=== PATIENT | male | born 1955 | race Caucasian/White ===

== ENCOUNTER 2017-05-14 10:54 | Inpatient (IN) | payer OTHER ==
[2017-05-14 12:44] VITALS: BMI 19.2
--- NOTE | 2017-05-14 12:52 | HP ---
CIWA Score - CIWA Score Nausea/Vomitin Muscle Tremors: 2 Anxiety: 2 Agitation: 2 Paroxysmal Sweats: 2 Orientation: 1-Uncertain about Date Tacttile Disturbances: 1-Very Mild Itch/Numbness Auditory Disturbances: 0-None Visual Disturbances: 0-None Headache: 2-Mild CIWA-Ar Total Score: 14 Admission ROS BHS - HPI Chief Complaint: I'm here because I'm an alcoholic and I want to stop Allergies/Adverse Reactions: Allergies Allergy/AdvReac Type Severity Reaction Status Date / Time No Known Allergies Allergy Verified 06/21/16 18:27 History of Present Illness: 62 y/o male with longstanding h/o alcoholism presents for detox with the intention of rehabilitation following treatment. His last detox was early this year, he was last treated at [facility] in July of last year. Patient is HIV + as per records, he however denied having such diagnosis. No HIV meds ordered this visit. He is an MMTP, on 80mg, medicated this morning. Exam Limitations: No Limitations - Ebola screening Have you traveled outside of the country in the last 21 days: No Have you had contact with anyone from an Ebola affected area: No Have you been sick,other than usual withdrawal symptoms: No Do you have a fever: No - Review of Systems Constitutional: Changes in sleep, Unintentional Wgt. Loss EENT: reports: No Symptoms Reported Respiratory: reports: No Symptoms reported Cardiac: reports: No Symptoms Reported GI: reports: Poor Appetite, Poor Fluid Intake, Abdominal cramping : reports: No Symptoms Reported Musculoskeletal: reports: Muscle Pain, Muscle Weakness Integumentary: reports: Other (well healed abdominal scar, s/p gastric bypass) Neuro: reports: Headache, Numbness Endocrine: reports: Unexplained Weight Loss Hematology: reports: No Symptoms Reported Psychiatric: reports: Depressed Other Systems: Reviewed and Negative Patient History - Patient Medical History Hx Anemia: No Hx Asthma: Yes Hx Chronic Obstructive Pulmonary Disease (COPD): No Hx Cancer: Yes (esophageal cancer, diagnosed 4 months ago, s/p chemo and radiation) Hx Cardiac Disorders: No Hx Congestive Heart Failure: No Hx Hypertension: No Hx Hypercholesterolemia: No Hx Pacemaker: No HX Cerebrovascular Accident: No Hx Seizures: Yes (alcohol related once in 02/2015) Hx Dementia: No Hx Diabetes: No Hx Gastrointestinal Disorders: No Hx Liver Disease: No Hx Genitourinary Disorders: No Hx Sexually Transmitted Disorders: No Hx Renal Disease (ESRD): No Hx Thyroid Disease: No Hx Human Immunodeficiency Virus (HIV): Yes (2011) Hx Hepatitis C: Yes (diagnosed 1979) Hx Depression: Yes Hx Suicide Attempt: Yes (2014 cut self) Hx Bipolar Disorder: No Hx Schizophrenia: No - Patient Surgical History Past Surgical History: Yes Hx Neurologic Surgery: No Hx Cataract Extraction: No Hx Cardiac Surgery: No Hx Lung Surgery: No Hx Breast Surgery: No Hx Breast Biopsy: No Hx Abdominal Surgery: Yes (gastric bypass 1971) Hx Appendectomy: No Hx Cholecystectomy: No Hx Genitourinary Surgery: No Hx Section: No Hx Orthopedic Surgery: No Anesthesia Reaction: No - PPD History Previous Implant?: Yes Implanted On Prior [facility] Admission?: Yes Date: 01/25/13 Results: 13 mm PPD to be Administered?: No - Smoking Cessation Smoking history: Current every day smoker Have you smoked in the past 12 months: Yes Aproximately how many cigarettes per day: 10 Hx Chewing Tobacco Use: No Initiated information on smoking cessation: Yes 'Breaking Loose' booklet given: 05/14/17 - Substance & Tx. History Hx Alcohol Use: Yes (vodka) Hx Substance Use: No Substance Use Type: Alcohol - Substances Abused Alcohol Route: Oral Frequency: Daily Amount used: 1 pint Age of first use: 16 Date of Last Use: 05/14/17 Family Disease History - Family Disease History Family Disease History: Diabetes: Mother (alzheimer's, ), Heart Disease : Mother, Other: Father (murdered), Mother Admission Physical Exam BHS - Vital Signs Vital Signs: Vital Signs - 24 hr 05/14/17 12:42 Temperature 96.2 F L Pulse Rate 84 Respiratory 19 Rate Blood Pressure 104/73 - Physical General Appearance: Yes: No Apparent Distress HEENTM: Yes: Hearing grossly Normal, Normocephalic, Other (edentulous) Respiratory: Yes: Chest Non-Tender, Lungs Clear, Normal Breath Sounds, No Respiratory Distress, No Accessory Muscle Use Neck: Yes: No masses,lesions,Nodules, Supple Breast: Yes: Breast Exam Deferred Cardiology: Yes: Within Normal Limits Abdominal: Yes: Normal Bowel Sounds, Flat, Soft, Surgical Scar Genitourinary: Yes: Within Normal Limits Back: Yes: Normal Inspection Musculoskeletal: Yes: full range of Motion, Muscle weakness Extremities: Yes: Normal Range of Motion, Non-Tender, Other (varicose veins) Neurological: Yes: certified nursing assistant II-XII NML intact, Alert, Normal Mood/Affect, Normal Response Integumentary: Yes: Normal Color, Warm Lymphatic: Yes: Within Normal Limits - Diagnostic (1) Alcohol dependence with withdrawal, uncomplicated Current Visit: Yes Status: Acute (2) HIV (human immunodeficiency virus infection) Current Visit: Yes Status: Chronic Comment: 2011 (3) Hepatitis C Current Visit: Yes Status: Chronic Qualifiers: Viral hepatitis chronicity: carrier (4) Methadone maintenance therapy patient Current Visit: Yes Status: Chronic Comment: receives 80mg from methadone program, last dose given today 05/14/2017 (5) Nicotine dependence Current Visit: Yes Status: Acute Qualifiers: Nicotine product type: cigarettes Substance use status: uncomplicated Qualified Code(s): F17.210 - Nicotine dependence, cigarettes, uncomplicated Cleared for Admission [facility] - Detox or Rehab [facility] Level of Care: Medically Managed Detox Regimen/Protocol: Librium S Breath Alcohol Content Breath Alcohol Content: 0.069 Urine Drug Screen - Results Drug Screen Negative: No Urine Drug Screen Results: MTD-Methadone
[2017-05-14] MEDS ORDERED: P-EPHED 60MG/TRIPROLIDI 2.5MG TABLET PO PRN (13:06)
[2017-05-14] MEDS ORDERED: guaiFENesin/D-METHORPHAN HB 10 ML UNIT-DOSE CUPS PO PRN (13:06)
[2017-05-14] MEDS ORDERED: IBUPROFEN 400 MG TABLET (FP) PO PRN (13:06)
[2017-05-14] MEDS ORDERED: MENTHOL/PHENOL 1 EACH UD MM PRN (13:06)
[2017-05-14] MEDS ORDERED: MAG HYDROX/AL HYDROX/SIMETH 30 ML UNIT-DOSE CUP PO PRN (13:06)
[2017-05-14] MEDS ORDERED: MAGNESIUM HYDROX 2400MG/30ML ORAL SUSPENSION 30 ML CUP PO PRN (13:06)
[2017-05-14] MEDS ORDERED: hydrOXYzine PAMOATE 50 MG CAPSULE (FP) PO PRN (13:06)
[2017-05-14] MEDS ORDERED: ACETAMINOPHEN 325 MG TABLET (FP) PO PRN (13:06)
[2017-05-14] MEDS ORDERED: NICOTINE POLACRILEX 2 MG GUM BUC PRN (13:06)
[2017-05-14] MEDS ORDERED: MAGNESIUM CITRATE 300 ML BOTTLE PO PRN (13:06)
[2017-05-14] MEDS ORDERED: chlordiazePOXIDE HCL 25 MG CAPSULE PO PRN (13:06)
[2017-05-14] MEDS ORDERED: chlordiazePOXIDE HCL 25 MG CAPSULE PO ONE (14:00)
[2017-05-14] MEDS: NICOTINE 14 MG/24 HOURS TOPICAL PATCH TD SCH (16:02)
[2017-05-14] MEDS: chlordiazePOXIDE HCL 25 MG CAPSULE PO SCH ×2 (17:26→22:02)
[2017-05-14 18:22] LABS: URINE APPEARANCE CLEAR; URINE BILIRUBIN NEGATIVE (NEGATIVE); URINE BLOOD NEGATIVE (NEGATIVE); URINE COLOR LTYELLOW; URINE GLUCOSE (UA) NEGATIVE (NEGATIVE); URINE KETONE NEGATIVE (NEGATIVE); URINE LEUK ESTERASE NEGATIVE (NEGATIVE); URINE NITRITE NEGATIVE (NEGATIVE); URINE PROTEIN NEGATIVE (NEGATIVE); URINE UROBILINOGEN NEGATIVE mg/dL (0.2-1.0)
[2017-05-14] MEDS: diphenhydrAMINE HCL 50 MG CAPSULE PO PRN (22:02)
[2017-05-14] MEDS: THIAMINE HCL 100 MG TABLET (FP) PO SCH (22:02)
[2017-05-15] MEDS: chlordiazePOXIDE HCL 25 MG CAPSULE PO SCH ×4 (06:12→23:04)
--- NOTE | 2017-05-15 07:21 | PN ---
S CIWA - CIWA Score Nausea/Vomitin Muscle Tremors: 3 Anxiety: 3 Agitation: 2 Paroxysmal Sweats: 1-Minimal Palms Moist Orientation: 0-Oriented Tacttile Disturbances: 1-Very Mild Itch/Numbness Auditory Disturbances: 1-Very Mild Visual Disturbances: 1-Very Mild Sensitivity Headache: 2-Mild CIWA-Ar Total Score: 17 BHS Progress Note (SOAP) Subjective: alert,irritable,anxious,interrupted sleep,tremor Objective: 05/15/17 07:21 Vital Signs Temperature 97.9 F 05/15/17 06:00 Pulse Rate 86 05/15/17 06:00 Respiratory Rate 16 05/15/17 06:00 Blood Pressure 116/62 05/15/17 06:00 O2 Sat by Pulse Oximetry (%) ekg nsr Laboratory Last Values Urine Color Ltyellow 05/14/17 15:50 Urine Appearance Clear 05/14/17 15:50 Urine pH 6.0 (5.0-8.0) 05/14/17 15:50 Ur Specific [place] <= 1.005 (1.005-1.025) 05/14/17 15:50 Urine Protein Negative (NEGATIVE) 05/14/17 15:50 Urine Glucose (UA) Negative (NEGATIVE) 05/14/17 15:50 Urine Ketones Negative (NEGATIVE) 05/14/17 15:50 Urine Blood Negative (NEGATIVE) 05/14/17 15:50 Urine Nitrite Negative (NEGATIVE) 05/14/17 15:50 Urine Bilirubin Negative (NEGATIVE) 05/14/17 15:50 Urine Urobilinogen Negative mg/dL (0.2-1.0) 05/14/17 15:50 Ur Leukocyte Esterase Negative (NEGATIVE) 05/14/17 15:50 labs pending Assessment: 05/15/17 07:22 withdrawal symptom Plan: continue detox
--- NOTE | 2017-05-15 07:42 | PN ---
ANGELICA Progress Note Note: addendum patient on compliance with hiv medication,last taken 3 months ago, stated he will go to see his own doctor for evaluation and medication after discharge
--- NOTE | 2017-05-15 08:15 | PN ---
Ruth Ann Progress Note Note: addendum patient asted he has been on methadone maintenance 80 mgs/day,last medicated yesterday,stated has no bottle to take home today, will give methadone 20 mgs po today,to verify patient's methadone program in am
[2017-05-15] MEDS ORDERED: METHADONE HCL 10 MG TABLET PO ONE (09:00)
[2017-05-15] MEDS: PRENATAL VITAMINS W/ FOLIC ACID TABLET (FP) PO SCH (10:01)
[2017-05-15] MEDS: NICOTINE 14 MG/24 HOURS TOPICAL PATCH TD SCH (10:02)
[2017-05-15 10:05] LABS: MCH 24.7 pg (25.7-33.7); MCHC 31.6 g/dl (32.0-35.9); MEAN CELL VOLUME 78.2 fl (80-96); MEAN PLT VOLUME 8.3 fl (7.5-11.1); PLATELET COUNT 367 K/MM3 (134-434); RDW 17.8 % (11.9-15.9); WHITE BLOOD COUNT 5.7 K/mm3 (4.0-10.0)
[2017-05-15 10:15] LABS: ALBUMIN 2.7 g/dl (3.4-5.0); ANION GAP 6 (8-16); CALCIUM 8.8 mg/dL (8.5-10.1); CO2 30 mmol/L (21-32); GLUCOSE,RANDOM 76 mg/dL (74-106); SGOT/AST 19 U/L (15-37)
[2017-05-15 10:18] LABS: ALK PHOS 96 U/L (45-117); BILIRUBIN,TOTAL 0.2 mg/dL (0.2-1.0); CREATININE 0.6 mg/dL (0.7-1.3); SGPT/ALT 13 U/L (12-78); TOT PROT 6.5 g/dl (6.4-8.2)
--- NOTE | 2017-05-15 13:28 | EKG ---
Test Reason : Blood Pressure : / mmHG Vent. Rate : 070 BPM Atrial Rate : 070 BPM P-R Int : 148 ms QRS Dur : 092 ms QT Int : 432 ms P-R-T Axes : 074 039 045 degrees QTc Int : 466 ms NORMAL SINUS RHYTHM LOW VOLTAGE QRS BORDERLINE ECG NO PREVIOUS ECGS AVAILABLE Confirmed by JOSS WALTERS, NNEKA ([id number]) on 05/15/2017 1:28:18 PM Referred By: Confirmed By:NNEKA COREAS MD
[2017-05-15] MEDS: THIAMINE HCL 100 MG TABLET (FP) PO SCH (23:05)
[2017-05-15] MEDS: diphenhydrAMINE HCL 50 MG CAPSULE PO PRN (23:05)
[2017-05-16] MEDS: chlordiazePOXIDE HCL 25 MG CAPSULE PO SCH ×2 (05:39→10:05)
[2017-05-16] MEDS: METHADONE HCL 40 MG DISPERSABLE TABLET PO SCH (07:29)
--- NOTE | 2017-05-16 09:09 | PN ---
S CIWA - CIWA Score Nausea/Vomitin Muscle Tremors: 3 Anxiety: 3 Agitation: 2 Paroxysmal Sweats: 1-Minimal Palms Moist Orientation: 0-Oriented Tacttile Disturbances: 1-Very Mild Itch/Numbness Auditory Disturbances: 1-Very Mild Visual Disturbances: 1-Very Mild Sensitivity Headache: 2-Mild CIWA-Ar Total Score: 17 BHS Progress Note (SOAP) Subjective: ALERT,IRRITABLE,ANXIOUS,INTERRUPTED SLEEP,ACHING PAIN Objective: 05/16/17 09:06 Vital Signs Temperature 98.6 F 05/16/17 09:05 Pulse Rate 104 H 05/16/17 09:05 Respiratory Rate 18 05/16/17 09:05 Blood Pressure 111/60 05/16/17 09:05 O2 Sat by Pulse Oximetry (%) Laboratory Last Values WBC 5.7 K/mm3 (4.0-10.0) 05/15/17 07:15 RBC 3.83 M/mm3 (4.00-5.60) L 05/15/17 07:15 Hgb 9.5 GM/dL (11.7-16.9) L 05/15/17 07:15 Hct 29.9 % (35.4-49) L 05/15/17 07:15 MCV 78.2 fl (80-96) L 05/15/17 07:15 MCH 24.7 pg (25.7-33.7) L 05/15/17 07:15 MCHC 31.6 g/dl (32.0-35.9) L 05/15/17 07:15 RDW 17.8 % (11.9-15.9) H 05/15/17 07:15 Plt Count 367 K/MM3 (134-434) D 05/15/17 07:15 MPV 8.3 fl (7.5-11.1) 05/15/17 07:15 Sodium 140 mmol/L (136-145) 05/15/17 07:15 Potassium 4.1 mmol/L (3.5-5.1) 05/15/17 07:15 Chloride 104 mmol/L (98-107) 05/15/17 07:15 Carbon Dioxide 30 mmol/L (21-32) 05/15/17 07:15 Anion Gap 6 (8-16) L 05/15/17 07:15 BUN 9 mg/dL (7-18) 05/15/17 07:15 Creatinine 0.6 mg/dL (0.7-1.3) L 05/15/17 07:15 Creat Clearance w eGFR > 60 (>60) 05/15/17 07:15 Random Glucose 76 mg/dL (74-106) 05/15/17 07:15 Calcium 8.8 mg/dL (8.5-10.1) 05/15/17 07:15 Total Bilirubin 0.2 mg/dL (0.2-1.0) D 05/15/17 07:15 AST 19 U/L (15-37) 05/15/17 07:15 ALT 13 U/L (12-78) D 05/15/17 07:15 Alkaline Phosphatase 96 U/L (45-117) 05/15/17 07:15 Total Protein 6.5 g/dl (6.4-8.2) 05/15/17 07:15 Albumin 2.7 g/dl (3.4-5.0) L 05/15/17 07:15 Urine Color Ltyellow 05/14/17 15:50 Urine Appearance Clear 05/14/17 15:50 Urine pH 6.0 (5.0-8.0) 05/14/17 15:50 Ur Specific [place] <= 1.005 (1.005-1.025) 05/14/17 15:50 Urine Protein Negative (NEGATIVE) 05/14/17 15:50 Urine Glucose (UA) Negative (NEGATIVE) 05/14/17 15:50 Urine Ketones Negative (NEGATIVE) 05/14/17 15:50 Urine Blood Negative (NEGATIVE) 05/14/17 15:50 Urine Nitrite Negative (NEGATIVE) 05/14/17 15:50 Urine Bilirubin Negative (NEGATIVE) 05/14/17 15:50 Urine Urobilinogen Negative mg/dL (0.2-1.0) 05/14/17 15:50 Ur Leukocyte Esterase Negative (NEGATIVE) 05/14/17 15:50 RPR Titer Reactive 1:1 (NONREACTIVE) H 05/15/17 07:15 T.pallidum Ab (MHA) Previously reactive (NONREACTIVE) 05/15/17 07:15 HISTORY OF ANEMIA,HISTORY OF SYPHILIS ,TREATED Assessment: 05/16/17 09:07 WITHDRAWAL SYMPTOM Plan: CONTINUE DETOX,FERROUS SULFATE 325 MGS PO BID FOR ANEMIA
[2017-05-16] MEDS: FERROUS SO4 325 MG TABLET (FP) PO SCH ×2 (10:05→22:14)
[2017-05-16] MEDS: NICOTINE 14 MG/24 HOURS TOPICAL PATCH TD SCH (10:05)
[2017-05-16] MEDS: PRENATAL VITAMINS W/ FOLIC ACID TABLET (FP) PO SCH (10:05)
--- NOTE | 2017-05-16 12:03 | CONSULT ---
[facility] Psychiatric Consult - Data Date of interview: 05/16/17 Admission source: [facility] Identifying data: This is 62 years old male with psychiatric hospitalization history, History of Schizoaffective Diosorder, iontoxicated with: Alcohol, Nicotine, Opioids Substance Abuse History: - Smoking Cessation. Smoking history: Current every day smoker. Have you smoked in the past 12 months: Yes. Aproximately how many cigarettes per day: 10. Hx Chewing Tobacco Use: No. Initiated information on smoking cessation: Yes. 'Breaking Loose' booklet given: 05/14/17. - Substance & Tx. History. Hx Alcohol Use: Yes (vodka). Hx Substance Use: No. Substance Use Type: Alcohol. - Substances Abused. Alcohol. Route: Oral. Frequency: Daily. Amount used: 1 pint. Age of first use: 16. Date of Last Use: 05/14/17 Medical History: HepC+, HIV, Weight loss, MMTP 80-mg per day, Asthma history, Anemia history, GERD, GASTRIC BYPASS s/p, PPD + Psychiatric History: Patient reportys history of Bipolar disorder, reprots most rceent psychiatric admission on 2017 at [facility] for safety, reports currently taking: Seroquel 20mg poqd,. 100mg po qhs Physical/Sexual Abuse/Trauma History: Denies Additional Comment: Seroquel 20mg poqd,. 100mg po qhs Mental Status Exam - Mental Status Exam Alert and Oriented to: Person Cognitive Function: Fair Patient Appearance: Unkempt Mood: Sad Affect: Flat Patient Behavior: Cooperative Speech Pattern: Delayed Voice Loudness: Mildly Soft/Quiet Thought Process: Circumstantial Thought Disorder: Being Controlled Hallucinations: Denies Suicidal Ideation: Denies Homicidal Ideation: Denies Insight/Judgement: Fair Sleep: Difficulty falling asleep Appetite: Weight loss Muscle strength/Tone: Normal Gait/Station: Normal Additional Comments: Seroquel 20mg poqd,. 100mg po qhs Psychiatric Findings - Problem List ([place] 1, 2,3) (1) Alcohol dependence with withdrawal, uncomplicated Current Visit: Yes Status: Acute (2) Nicotine dependence Current Visit: Yes Status: Acute Qualifiers: Nicotine product type: cigarettes Substance use status: uncomplicated Qualified Code(s): F17.210 - Nicotine dependence, cigarettes, uncomplicated (3) Methadone maintenance therapy patient Current Visit: Yes Status: Chronic Comment: receives 80mg from methadone program, last dose given today 05/14/2017 (4) Substance induced mood disorder Current Visit: No Status: Acute (5) Substance-induced sleep disorder Current Visit: No Status: Acute (6) Anemia Current Visit: No Status: Chronic Qualifiers: Anemia type: iron deficiency (7) Schizoaffective disorder Current Visit: No Status: Suspected (8) Weight decrease Current Visit: No Status: Suspected - Initial Treatment Plan Initial Treatment Plan: Seroquel 20mg poqd,. 100mg po qhs
[2017-05-16] MEDS: QUEtiapine FUMARATE 25 MG TABLET (FP) PO SCH (12:32)
[2017-05-16] MEDS: chlordiazePOXIDE 5 MG CAPSULE PO SCH ×2 (17:31→22:35)
[2017-05-16] MEDS: LOPERAMIDE HCL 2 MG CAPSULE PO PRN (17:31)
[2017-05-16] MEDS: QUEtiapine FUMARATE 100 MG TABLET (FP) PO SCH (22:14)
[2017-05-16] MEDS: THIAMINE HCL 100 MG TABLET (FP) PO SCH (22:16)
[2017-05-17] MEDS: chlordiazePOXIDE 5 MG CAPSULE PO SCH ×2 (05:34→10:16)
[2017-05-17] MEDS: METHADONE HCL 40 MG DISPERSABLE TABLET PO SCH (05:35)
--- NOTE | 2017-05-17 09:22 | PN ---
S Progress Note (SOAP) Subjective: ALERT,IRRITABLE,ANXIOUS,INTERRUPTED SLEEP, Objective: 05/17/17 09:21 Vital Signs Temperature 97.3 F L 05/17/17 06:21 Pulse Rate 89 05/17/17 06:21 Respiratory Rate 18 05/17/17 06:21 Blood Pressure 106/70 05/17/17 06:21 O2 Sat by Pulse Oximetry (%) Assessment: 05/17/17 09:21 WITHDRAWAL SYMPTOM Plan: CONTINUE DETOX
[2017-05-17] MEDS: FERROUS SO4 325 MG TABLET (FP) PO SCH ×2 (10:16→22:33)
[2017-05-17] MEDS: PRENATAL VITAMINS W/ FOLIC ACID TABLET (FP) PO SCH (10:16)
[2017-05-17] MEDS: QUEtiapine FUMARATE 25 MG TABLET (FP) PO SCH (10:16)
[2017-05-17] MEDS: NICOTINE 14 MG/24 HOURS TOPICAL PATCH TD SCH (10:18)
[2017-05-17] MEDS: chlordiazePOXIDE HCL 10 MG CAPSULE PO SCH ×2 (17:17→22:36)
[2017-05-17] MEDS: LOPERAMIDE HCL 2 MG CAPSULE PO PRN (17:18)
[2017-05-17 21:53] VITALS: TEMP 98.2
[2017-05-17] MEDS: THIAMINE HCL 100 MG TABLET (FP) PO SCH (22:33)
[2017-05-17] MEDS: QUEtiapine FUMARATE 100 MG TABLET (FP) PO SCH (22:33)
[2017-05-18] MEDS: METHADONE HCL 40 MG DISPERSABLE TABLET PO SCH (06:07)
[2017-05-18] MEDS: chlordiazePOXIDE HCL 10 MG CAPSULE PO SCH ×2 (06:07→10:23)
[2017-05-18 06:46] VITALS: BP 111/56; PULSE 97
--- NOTE | 2017-05-18 08:17 | DS ---
[facility] Detox Discharge Summary Admission Date: 05/14/17 - History Present History: Alcohol Dependence - Physical Exam Results Vital Signs: Vital Signs Temperature 98.2 F 05/18/17 06:45 Pulse Rate 97 H 05/18/17 06:45 Respiratory Rate 20 05/18/17 06:45 Blood Pressure 111/56 05/18/17 06:45 O2 Sat by Pulse Oximetry (%) - Treatment Hospital Course: Detox Protocol Followed, Detoxed Safely, Responded well, Discharged Condition Good - Medication Discharge Medications: Ambulatory Orders Albuterol Sulfate Inhaler - [Ventolin HFA Inhaler -] 2 inh PO Q4H PRN #1 inh 08/13 Quetiapine Fumarate [Seroquel -] 100 mg PO HS #30 tab 08/09/15 Omeprazole [Prilosec] 40 mg PO DAILY 06/21/16 Naproxen [EC-Naprosyn 375 MG] 375 mg PO BID 06/22/16 Emtricitabine/Tenofovir [Truvada -] 1 tab PO DAILY tablet 06/25/16 - Diagnosis (1) Alcohol dependence with withdrawal, uncomplicated Current Visit: Yes Status: Chronic (2) Nicotine dependence Current Visit: Yes Status: Chronic Qualifiers: Nicotine product type: cigarettes Substance use status: uncomplicated Qualified Code(s): F17.210 - Nicotine dependence, cigarettes, uncomplicated (3) HIV (human immunodeficiency virus infection) Current Visit: Yes Status: Chronic (4) Hepatitis C Current Visit: Yes Status: Chronic Qualifiers: Viral hepatitis chronicity: carrier (5) Methadone maintenance therapy patient Current Visit: Yes Status: Chronic (6) GERD (gastroesophageal reflux disease) Current Visit: Yes Status: Chronic Qualifiers: Esophagitis presence: without esophagitis Qualified Code(s): K21.9 - Gastro-esophageal reflux disease without esophagitis - AMA Did Patient Leave Against Medical Advice: No
[2017-05-18] MEDS: PRENATAL VITAMINS W/ FOLIC ACID TABLET (FP) PO SCH (10:22)
[2017-05-18] MEDS: FERROUS SO4 325 MG TABLET (FP) PO SCH (10:22)
[2017-05-18] MEDS: QUEtiapine FUMARATE 25 MG TABLET (FP) PO SCH (10:22)
[2017-05-18] MEDS: NICOTINE 14 MG/24 HOURS TOPICAL PATCH TD SCH (10:22)
== END 2017-05-18 10:57 | disposition home or self-care (01) | DRG 897 ==
LOC: YASAS 10:54 → Y6N 13:57
PROVIDERS: ADMIT Internal Medicine; ATTEND Internal Medicine
PROC: HZ2ZZZZ Detoxification Services for Substance Abuse Treatment (ICD-10-PCS; principal; 2017-05-18)
DX: F11.20 Opioid dependence, uncomplicated (principal); F10.230 Alcohol dependence with withdrawal, uncomplicated; F19.282 Other psychoactive substance dependence with psychoactive substance-induced sleep disorder; Z68.1 Body mass index [BMI] 19.9 or less, adult; F17.210 Nicotine dependence, cigarettes, uncomplicated; F19.24 Other psychoactive substance dependence with psychoactive substance-induced mood disorder; F25.9 Schizoaffective disorder, unspecified; B18.2 Chronic viral hepatitis C; Z21 Asymptomatic human immunodeficiency virus [HIV] infection status; K21.9 Gastro-esophageal reflux disease without esophagitis; R63.4 Abnormal weight loss
CPT/HCPCS: 36415; 71020-TC; 80053; 81003; 85027; 86593; 86780; 93005; 93010

== ENCOUNTER 2017-09-13 10:35 | Inpatient (IN) | payer OTHER ==
[2017-09-13 11:04] VITALS: BMI 22.8
--- NOTE | 2017-09-13 17:10 | HP ---
Admission ROS [facility] Chief Complaint: I am here for rehab for treatment. Allergies/Adverse Reactions: Allergies Allergy/AdvReac Type Severity Reaction Status Date / Time No Known Allergies Allergy Verified 09/13/17 16:49 History of Present Illness: pt is a 62yr old male with a history of alcohol and crack cocaine but pt received detox at [facility] and is now here for rehab for further tx. pt is on a mmtp program and received 80mg of methadone today pending verification. Exam Limitations: Physical Impairment (pt uses walker d/t weak knees) - Ebola screening Have you traveled outside of the country in the last 21 days: No Have you had contact with anyone from an Ebola affected area: No Have you been sick,other than usual withdrawal symptoms: No Do you have a fever: No - Review of Systems Constitutional: Loss of Appetite, Changes in sleep, Unintentional Wgt. Loss EENT: reports: No Symptoms Reported Respiratory: reports: No Symptoms reported Cardiac: reports: No Symptoms Reported GI: reports: No Symptoms Reported : reports: No Symptoms Reported Musculoskeletal: reports: No Symptoms Reported Integumentary: reports: No Symptoms Reported Neuro: reports: No Symptoms reported Hematology: reports: No Symptoms Reported Psychiatric: reports: Judgement Intact, Mood/Affect Appropiate, Orientated x3, Agitated, Anxious Other Systems: Reviewed and Negative Patient History - Patient Medical History Hx Anemia: No Hx Asthma: Yes Hx Chronic Obstructive Pulmonary Disease (COPD): No Hx Cancer: Yes (esophageal cancer, diagnosed 4 months ago, s/p chemo and radiation) Hx Cardiac Disorders: No Hx Congestive Heart Failure: No Hx Hypertension: No Hx Hypercholesterolemia: No Hx Pacemaker: No HX Cerebrovascular Accident: No Hx Seizures: No Hx Dementia: No Hx Diabetes: No Hx Gastrointestinal Disorders: No Hx Liver Disease: No Hx Genitourinary Disorders: No Hx Sexually Transmitted Disorders: No Hx Renal Disease (ESRD): No Hx Thyroid Disease: No Hx Human Immunodeficiency Virus (HIV): Yes (2011) Hx Hepatitis C: Yes (diagnosed 1979) Hx Depression: No Hx Suicide Attempt: No (denies) Hx Bipolar Disorder: No Hx Schizophrenia: No - Patient Surgical History Past Surgical History: Yes Hx Neurologic Surgery: No Hx Cataract Extraction: No Hx Cardiac Surgery: No Hx Lung Surgery: No Hx Breast Surgery: No Hx Breast Biopsy: No Hx Abdominal Surgery: Yes (gastric bypass 1971) Hx Appendectomy: No Hx Cholecystectomy: No Hx Genitourinary Surgery: No Hx Section: No Hx Orthopedic Surgery: No Other Surgical History: SPRAINED RT. ANKLE Anesthesia Reaction: No - PPD History Previous Implant?: Yes Documented Results: Positive w/proof Implanted On Prior [facility] Admission?: Yes Date: 01/25/13 Results: 13 mm PPD to be Administered?: No - Reproductive History Patient is a Female of Child Bearing Age (11 -55 yrs old): No - Smoking Cessation Smoking history: Current every day smoker Have you smoked in the past 12 months: Yes Aproximately how many cigarettes per day: 10 Hx Chewing Tobacco Use: No Initiated information on smoking cessation: Yes 'Breaking Loose' booklet given: 09/13/17 - Substance & Tx. History Hx Alcohol Use: Yes Hx Substance Use: Yes Substance Use Type: Alcohol, Cocaine Hx Substance Use Treatment: Yes (last detox at [facility] 2016) - Substances Abused Crack Route: Smoking Frequency: Daily Amount used: $20 Age of first use: 22 Date of Last Use: 09/08/17 Alcohol-vodka Route: Oral Frequency: Daily Amount used: fifth Age of first use: 17 Date of Last Use: 09/08/17 Family Disease History - Family Disease History Family Disease History: Diabetes: Mother (alzheimer's, ), Heart Disease : Mother, Other: Father (murdered), Mother Admission Physical Exam [facility] - Vital Signs Vital Signs: Vital Signs - 24 hr 09/13/17 10:59 Temperature 98.1 F Pulse Rate 70 Respiratory 18 Rate Blood Pressure 119/78 - Physical General Appearance: Yes: Appropriately Dressed, Moderate Distress, Thin, Anxious HEENTM: Yes: Normal Voice, Nasal Congestion, Rhinorrhea Respiratory: Yes: Lungs Clear, Normal Breath Sounds, No Respiratory Distress Neck: Yes: No masses,lesions,Nodules Breast: Yes: Within Normal Limits Cardiology: Yes: Regular Rhythm, Regular Rate, S1, S2 Abdominal: Yes: Normal Bowel Sounds, Non Tender, Soft Genitourinary: Yes: Within Normal Limits Back: Yes: Normal Inspection Extremities: Yes: Normal Capillary Refill, Non-Tender Neurological: Yes: Fully Oriented Integumentary: Yes: Normal Color Lymphatic: Yes: Within Normal Limits - Diagnostic (1) Asthma Current Visit: No Status: Chronic Qualifiers: Asthma severity: mild Asthma complication type: uncomplicated (2) HIV (human immunodeficiency virus infection) Current Visit: No Status: Chronic Comment: 2011 (3) Hepatitis C Current Visit: No Status: Chronic Qualifiers: Viral hepatitis chronicity: chronic (4) Methadone maintenance therapy patient Current Visit: No Status: Chronic Comment: receives 80mg from methadone program, last dose given today 05/14/2017 (5) Nicotine dependence Current Visit: No Status: Chronic Qualifiers: Nicotine product type: cigarettes Substance use status: uncomplicated Qualified Code(s): F17.210 - Nicotine dependence, cigarettes, uncomplicated Cleared for Admission [facility] - Detox or Rehab [facility] Level of Care: Medically Managed Claeared for Rehab Admission: Yes [facility] Breath Alcohol Content Breath Alcohol Content: 0 Urine Drug Screen - Results Drug Screen Negative: No Urine Drug Screen Results: DELORIS-Cocaine, MTD-Methadone
[2017-09-13] MEDS ORDERED: LOPERAMIDE HCL 2 MG CAPSULE PO PRN (17:19)
[2017-09-13] MEDS ORDERED: hydrOXYzine PAMOATE 50 MG CAPSULE (FP) PO PRN (17:19)
[2017-09-13] MEDS ORDERED: NICOTINE POLACRILEX 4 MG GUM BC PRN (17:19)
[2017-09-13] MEDS ORDERED: MAGNESIUM CITRATE 300 ML BOTTLE PO PRN (17:19)
[2017-09-13] MEDS ORDERED: MENTHOL/PHENOL 1 EACH UD MM PRN (17:19)
[2017-09-13] MEDS ORDERED: IBUPROFEN 400 MG TABLET (FP) PO PRN (17:19)
[2017-09-13] MEDS ORDERED: guaiFENesin/D-METHORPHAN HB 10 ML UNIT-DOSE CUPS PO PRN (17:19)
[2017-09-13] MEDS ORDERED: MAG HYDROX/AL HYDROX/SIMETH 30 ML UNIT-DOSE CUP PO PRN (17:19)
[2017-09-13] MEDS ORDERED: P-EPHED 60MG/TRIPROLIDI 2.5MG TABLET PO PRN (17:19)
[2017-09-13] MEDS ORDERED: MAGNESIUM HYDROX 2400MG/30ML ORAL SUSPENSION 30 ML CUP PO PRN (17:19)
[2017-09-13] MEDS: THIAMINE HCL 100 MG TABLET (FP) PO SCH (21:17)
[2017-09-13] MEDS: QUEtiapine FUMARATE 100 MG TABLET (FP) PO SCH ×2 (21:17→22:14)
[2017-09-13 22:43] LABS: URINE APPEARANCE SLCLOUDY; URINE BILIRUBIN NEGATIVE (NEGATIVE); URINE BLOOD NEGATIVE (NEGATIVE); URINE COLOR YELLOW; URINE GLUCOSE (UA) NEGATIVE (NEGATIVE); URINE KETONE NEGATIVE (NEGATIVE); URINE NITRITE NEGATIVE (NEGATIVE); URINE PROTEIN NEGATIVE (NEGATIVE)
--- NOTE | 2017-09-14 06:22 | HP ---
Psychiatrist Admission - Data Date of interview: 09/14/17 Admission source: [facility] Identifying data: This is the second [facility] admission for this 62 years old single male, unemployed on SSI, homeless Medical History: Significant for history of bronchial asthma, alcohol-related seizure, Hep C, chronic LBP, prophylaxis treatment for TB, right shoulder sprained and a history of blood clot both legs and gastric bypass surgery. Patient is on methadone 80 mg/day. Smokes 10 cigarettes daily Psychiatric History: Patient is a poor and unreliable historian. However he acknowledges information he provided in previous admissions to this facility. He has history of Schizophrenia since 1991 and has had multiple previous psychiatric hospitalizations including [facility] in 2013 for CAH/SI. More recently earlier this year, reports being admitted to a hospital in [place], [place] . Reports non-compliance with psychiatric outpatient services. Claims that last time he took psychotropic medications was last April when he was admitted to detox in this facility and prescribed Seroquel 200 mg daily & [address] Welch. At present, reports sleeping poorly without medication. Denies experiencing psychotic, manic or depressive symptoms, S/H ideations Physical/Sexual Abuse/Trauma History: Denies history of verbal, physical or sexual abuse as well as DV relationship Additional Comment: Denies criminal history Vital Signs: Vital Signs - 24 hr 09/13/17 10:59 Temperature 98.1 F Pulse Rate 70 Respiratory 18 Rate Blood Pressure 119/78 Allergies/Adverse Reactions: Allergies Allergy/AdvReac Type Severity Reaction Status Date / Time No Known Allergies Allergy Verified 09/13/17 16:49 Date of last physical exam: 09/13/17 Concur with the findings of this exam: Yes - Substance Abuse/Tx History Hx Alcohol Use: Yes Hx Substance Use: Yes Substance Use Type: Alcohol (Started drinking alcohol at age 17, consumes a fifth of vodka daily. Last drank on 09/08/17), Cocaine (Started smoking crack cocaine at age 22, consumes $20 worth daily.Last smoked on 09/08/17) Hx Substance Use Treatment: Yes (Attends [facility]; 13 previous inpt detox & one rehab @ [facility]) Mental Status Exam - Mental Status Exam Alert and Oriented to: Place, Person Cognitive Function: Fair Patient Appearance: Disheveled Mood: Hopeful, Euthymic Affect: Appropriate Patient Behavior: Cooperative Speech Pattern: Clear Voice Loudness: Normal Thought Process: Intact, Goal Oriented Hallucinations: Denies Suicidal Ideation: Denies Homicidal Ideation: Denies Insight/Judgement: Fair Sleep: Poorly Appetite: Fair Muscle strength/Tone: Normal Gait/Station: Normal Psychiatric Findings - Problem List ([place] 1, 2,3) (1) Alcohol dependence Current Visit: Yes Status: Acute (2) Cocaine dependence Current Visit: Yes Status: Acute (3) Schizoaffective disorder Current Visit: No Status: Suspected (4) Opioid dependence on agonist therapy Current Visit: Yes Status: Acute (5) Nicotine dependence Current Visit: Yes Status: Acute (6) Schizoaffective disorder Current Visit: Yes Status: Acute (7) Substance-induced sleep disorder Current Visit: No Status: Acute (8) Anemia Current Visit: No Status: Chronic Qualifiers: Anemia type: iron deficiency (9) Asthma Current Visit: No Status: Chronic Qualifiers: Asthma severity: mild Asthma complication type: uncomplicated (10) GERD (gastroesophageal reflux disease) Current Visit: No Status: Chronic Qualifiers: Esophagitis presence: without esophagitis Qualified Code(s): K21.9 - Gastro -esophageal reflux disease without esophagitis (11) HIV (human immunodeficiency virus infection) Current Visit: No Status: Chronic Comment: 2011 (12) Hepatitis C Current Visit: No Status: Chronic Qualifiers: Viral hepatitis chronicity: chronic - Initial Treatment Plan Initial Treatment Plan: 1) Start Seroquel 100 mg po HS. 2) Monitor progress
[2017-09-14] MEDS: ACETAMINOPHEN 325 MG TABLET (FP) PO PRN (06:30)
[2017-09-14] MEDS ORDERED: METHADONE HCL 10 MG TABLET PO ONE (07:56)
[2017-09-14] MEDS ORDERED: METHADONE HCL 40 MG DISPERSABLE TABLET PO ONE (08:05)
[2017-09-14] MEDS: NICOTINE 21 MG/24 HOURS TOPICAL PATCH TD SCH (09:59)
[2017-09-14] MEDS: PRENATAL VITAMINS W/ FOLIC ACID TABLET (FP) PO SCH (09:59)
[2017-09-14 10:08] LABS: MCH 22.6 pg (25.7-33.7); MCHC 30.7 g/dl (32.0-35.9); MEAN CELL VOLUME 73.7 fl (80-96); MEAN PLT VOLUME 8.9 fl (7.5-11.1); PLATELET COUNT 376 K/MM3 (134-434); RDW 19.7 % (11.9-15.9); WHITE BLOOD COUNT 11.5 K/mm3 (4.0-10.0)
[2017-09-14 10:33] LABS: ALBUMIN 2.9 g/dl (3.4-5.0); ALK PHOS 100 U/L (45-117); ANION GAP 12 (8-16); BILIRUBIN,TOTAL 0.5 mg/dL (0.2-1.0); CALCIUM 8.3 mg/dL (8.5-10.1); CO2 24 mmol/L (21-32); CREATININE 0.7 mg/dL (0.7-1.3); GLUCOSE,RANDOM 72 mg/dL (74-106); SGOT/AST 14 U/L (15-37); SGPT/ALT 17 U/L (12-78)
[2017-09-14 11:01] LABS: URINE LEUK ESTERASE Negative (NEGATIVE)
[2017-09-14 11:03] LABS: HIV 1 & 2 AB NEGATIVE; HIV 1 AGp24 NEGATIVE
--- NOTE | 2017-09-14 11:38 | EKG ---
Test Reason : Blood Pressure : / mmHG Vent. Rate : 066 BPM Atrial Rate : 066 BPM P-R Int : 138 ms QRS Dur : 092 ms QT Int : 422 ms P-R-T Axes : 051 015 030 degrees QTc Int : 442 ms NORMAL SINUS RHYTHM NORMAL ECG WHEN COMPARED WITH ECG OF 14-MAY-2017 14:53, NO SIGNIFICANT CHANGE WAS FOUND Confirmed by NNEKA COREAS MD ([id number]) on 09/14/2017 11:38:08 AM Referred By: Confirmed By:NNEKA COREAS MD
--- NOTE | 2017-09-14 13:26 | PN ---
S Progress Note (SOAP) Subjective: no SOB, wheezing or sputum production , no complaints Objective: 09/14/17 13:23 Vital Signs - 24 hr 09/14/17 09/14/17 09/14/17 07:11 07:23 09:30 Temperature 101 F H 99.2 F 99.3 F Pulse Rate 90 95 H Respiratory 20 18 Rate Blood Pressure 131/80 103/53 febrile, tachycardia Laboratory Tests 09/13/17 09/13/17 09/14/17 07:00 21:30 07:00 WBC 11.5 H D RBC 3.72 L Hgb 8.4 L D Hct 27.4 L MCV 73.7 L MCH 22.6 L MCHC 30.7 L RDW 19.7 H D Plt Count 376 MPV 8.9 Sodium Potassium Chloride Carbon Dioxide Anion Gap BUN Creatinine Creat Clearance w eGFR Random Glucose Calcium Total Bilirubin AST ALT Alkaline Phosphatase Total Protein Albumin Urine Color Yellow Urine Appearance Slcloudy Urine pH 5.0 Ur Specific [place] 1.014 Urine Protein Negative Urine Glucose (UA) Negative Urine Ketones Negative Urine Blood Negative Urine Nitrite Negative Urine Bilirubin Negative Urine Urobilinogen 2.0 Ur Leukocyte Esterase Negative RPR Titer T.pallidum Ab (MHA) HIV 1&2 Antibody Screen Negative HIV P24 Antigen Negative 09/14/17 09/14/17 07:00 07:00 WBC RBC Hgb Hct MCV MCH MCHC RDW Plt Count MPV Sodium 142 Potassium 4.6 Chloride 106 Carbon Dioxide 24 Anion Gap 12 BUN 11 D Creatinine 0.7 Creat Clearance w eGFR > 60 Random Glucose 72 L Calcium 8.3 L Total Bilirubin 0.5 D AST 14 L D ALT 17 D Alkaline Phosphatase 100 Total Protein 7.0 Albumin 2.9 L Urine Color Urine Appearance Urine pH Ur Specific [place] Urine Protein Urine Glucose (UA) Urine Ketones Urine Blood Urine Nitrite Urine Bilirubin Urine Urobilinogen Ur Leukocyte Esterase RPR Titer Reactive 1:1 H T.pallidum Ab (MHA) Previously reactive HIV 1&2 Antibody Screen HIV P24 Antigen syphilis +e, 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 If condition deteriorates send to ED for evaluation.
[2017-09-14] MEDS: PANTOPRAZOLE 40 MG TABLET (FP) PO SCH (14:18)
[2017-09-14] MEDS: FERROUS SO4 325 MG TABLET (FP) PO SCH ×2 (14:18→16:55)
[2017-09-14] MEDS: AMOX TR/POT CLAV 500MG/125MG TABLETS (FP) PO SCH ×2 (15:16→16:55)
[2017-09-14] MEDS: METHYL SALICYLATE/MENTHOL OINT 30 GM TUBE TP SCH (15:16)
[2017-09-14] MEDS: THIAMINE HCL 100 MG TABLET (FP) PO SCH (21:51)
[2017-09-14] MEDS: QUEtiapine FUMARATE 100 MG TABLET (FP) PO SCH ×2 (21:52→22:13)
[2017-09-14] MEDS: DOCUSATE SODIUM 100 MG CAPSULE (FP) PO SCH (21:53)
[2017-09-15] MEDS ORDERED: METHADONE HCL 10 MG TABLET ONE (05:38)
[2017-09-15] MEDS ORDERED: METHADONE HCL 40 MG DISPERSABLE TABLET ONE (05:38)
[2017-09-15] MEDS ORDERED: METHADONE 40 MG, METHADONE 10 MG PO ONE (06:00)
[2017-09-15] MEDS ORDERED: METHADONE HCL 10 MG TABLET PO ONE (06:00)
[2017-09-15] MEDS: AMOX TR/POT CLAV 500MG/125MG TABLETS (FP) PO SCH ×2 (08:09→16:55)
[2017-09-15] MEDS: FERROUS SO4 325 MG TABLET (FP) PO SCH ×3 (08:09→16:55)
[2017-09-15] MEDS: METHYL SALICYLATE/MENTHOL OINT 30 GM TUBE TP SCH (10:29)
[2017-09-15] MEDS: PANTOPRAZOLE 40 MG TABLET (FP) PO SCH (10:29)
[2017-09-15] MEDS: NICOTINE 21 MG/24 HOURS TOPICAL PATCH TD SCH (10:29)
[2017-09-15] MEDS: PRENATAL VITAMINS W/ FOLIC ACID TABLET (FP) PO SCH (10:29)
[2017-09-15] MEDS: QUEtiapine FUMARATE 100 MG TABLET (FP) PO SCH (21:36)
[2017-09-15] MEDS: DOCUSATE SODIUM 100 MG CAPSULE (FP) PO SCH (21:36)
[2017-09-15] MEDS: THIAMINE HCL 100 MG TABLET (FP) PO SCH (21:36)
[2017-09-15] MEDS: ALBUTEROL SO4 18 GM HFA INHALER IH PRN (21:37)
[2017-09-16] MEDS ORDERED: METHADONE HCL 10 MG TABLET ONE (04:06)
[2017-09-16] MEDS ORDERED: METHADONE HCL 40 MG DISPERSABLE TABLET ONE (04:06)
[2017-09-16] MEDS ORDERED: METHADONE 40 MG, METHADONE 20 MG PO ONE (06:00)
[2017-09-16] MEDS ORDERED: METHADONE HCL 10 MG TABLET PO ONE (06:00)
[2017-09-16] MEDS: FERROUS SO4 325 MG TABLET (FP) PO SCH ×3 (07:29→16:46)
[2017-09-16] MEDS: AMOX TR/POT CLAV 500MG/125MG TABLETS (FP) PO SCH ×2 (07:29→16:46)
[2017-09-16] MEDS: PANTOPRAZOLE 40 MG TABLET (FP) PO SCH (09:54)
[2017-09-16] MEDS: PRENATAL VITAMINS W/ FOLIC ACID TABLET (FP) PO SCH (09:54)
[2017-09-16] MEDS: NICOTINE 21 MG/24 HOURS TOPICAL PATCH TD SCH (09:55)
[2017-09-16] MEDS: ALBUTEROL SO4 18 GM HFA INHALER IH PRN (09:55)
[2017-09-16] MEDS: METHYL SALICYLATE/MENTHOL OINT 30 GM TUBE TP SCH (09:55)
[2017-09-16] MEDS: THIAMINE HCL 100 MG TABLET (FP) PO SCH (21:47)
[2017-09-16] MEDS: DOCUSATE SODIUM 100 MG CAPSULE (FP) PO SCH (21:47)
[2017-09-16] MEDS: QUEtiapine FUMARATE 100 MG TABLET (FP) PO SCH (21:48)
[2017-09-17] MEDS ORDERED: METHADONE HCL 40 MG DISPERSABLE TABLET ONE (04:03)
[2017-09-17] MEDS ORDERED: METHADONE HCL 10 MG TABLET ONE (04:03)
[2017-09-17] MEDS ORDERED: METHADONE 40 MG, METHADONE 30 MG PO ONE (06:00)
[2017-09-17] MEDS ORDERED: METHADONE HCL 10 MG TABLET PO ONE (06:00)
[2017-09-17] MEDS: AMOX TR/POT CLAV 500MG/125MG TABLETS (FP) PO SCH ×2 (07:18→17:35)
[2017-09-17] MEDS: FERROUS SO4 325 MG TABLET (FP) PO SCH ×3 (07:18→17:36)
[2017-09-17] MEDS: NICOTINE 21 MG/24 HOURS TOPICAL PATCH TD SCH (09:52)
[2017-09-17] MEDS: PANTOPRAZOLE 40 MG TABLET (FP) PO SCH (09:53)
[2017-09-17] MEDS: METHYL SALICYLATE/MENTHOL OINT 30 GM TUBE TP SCH (09:53)
[2017-09-17] MEDS: PRENATAL VITAMINS W/ FOLIC ACID TABLET (FP) PO SCH (09:53)
[2017-09-17] MEDS: ALBUTEROL SO4 18 GM HFA INHALER IH PRN (09:53)
[2017-09-17] MEDS: DOCUSATE SODIUM 100 MG CAPSULE (FP) PO SCH (21:11)
[2017-09-17] MEDS: QUEtiapine FUMARATE 100 MG TABLET (FP) PO SCH (21:11)
[2017-09-17] MEDS: THIAMINE HCL 100 MG TABLET (FP) PO SCH (21:11)
[2017-09-18] MEDS ORDERED: METHADONE HCL 10 MG TABLET PO SCH (06:00)
[2017-09-18] MEDS: METHADONE HCL 40 MG DISPERSABLE TABLET PO SCH (06:20)
[2017-09-18] MEDS: FERROUS SO4 325 MG TABLET (FP) PO SCH ×3 (07:09→17:19)
[2017-09-18] MEDS: AMOX TR/POT CLAV 500MG/125MG TABLETS (FP) PO SCH ×2 (07:09→17:19)
[2017-09-18] MEDS: NICOTINE 21 MG/24 HOURS TOPICAL PATCH TD SCH (09:57)
[2017-09-18] MEDS: METHYL SALICYLATE/MENTHOL OINT 30 GM TUBE TP SCH (09:57)
[2017-09-18] MEDS: PRENATAL VITAMINS W/ FOLIC ACID TABLET (FP) PO SCH (09:57)
[2017-09-18] MEDS: PANTOPRAZOLE 40 MG TABLET (FP) PO SCH (09:57)
[2017-09-18] MEDS: ALBUTEROL SO4 18 GM HFA INHALER IH PRN (17:20)
[2017-09-18] MEDS: THIAMINE HCL 100 MG TABLET (FP) PO SCH (21:25)
[2017-09-18] MEDS: DOCUSATE SODIUM 100 MG CAPSULE (FP) PO SCH (21:25)
[2017-09-18] MEDS: QUEtiapine FUMARATE 100 MG TABLET (FP) PO SCH (21:25)
[2017-09-19] MEDS: METHADONE HCL 40 MG DISPERSABLE TABLET PO SCH (06:21)
[2017-09-19] MEDS: ALBUTEROL SO4 18 GM HFA INHALER IH PRN (06:24)
[2017-09-19] MEDS: AMOX TR/POT CLAV 500MG/125MG TABLETS (FP) PO SCH ×2 (07:14→17:14)
[2017-09-19] MEDS: FERROUS SO4 325 MG TABLET (FP) PO SCH ×3 (07:15→17:14)
[2017-09-19] MEDS: PRENATAL VITAMINS W/ FOLIC ACID TABLET (FP) PO SCH (09:42)
[2017-09-19] MEDS: PANTOPRAZOLE 40 MG TABLET (FP) PO SCH (09:42)
[2017-09-19] MEDS: METHYL SALICYLATE/MENTHOL OINT 30 GM TUBE TP SCH (09:43)
[2017-09-19] MEDS: NICOTINE 21 MG/24 HOURS TOPICAL PATCH TD SCH (09:43)
[2017-09-19] MEDS: DOCUSATE SODIUM 100 MG CAPSULE (FP) PO SCH (21:56)
[2017-09-19] MEDS: THIAMINE HCL 100 MG TABLET (FP) PO SCH (21:57)
[2017-09-19] MEDS: QUEtiapine FUMARATE 100 MG TABLET (FP) PO SCH (21:57)
[2017-09-20] MEDS: COLLOIDAL OATMEAL 1 BAR EACH TP PRN (02:24)
[2017-09-20] MEDS: METHADONE HCL 40 MG DISPERSABLE TABLET PO SCH (06:24)
[2017-09-20] MEDS: FERROUS SO4 325 MG TABLET (FP) PO SCH ×3 (07:10→16:57)
[2017-09-20] MEDS: AMOX TR/POT CLAV 500MG/125MG TABLETS (FP) PO SCH ×2 (07:10→16:57)
[2017-09-20] MEDS: NICOTINE 21 MG/24 HOURS TOPICAL PATCH TD SCH (09:51)
[2017-09-20] MEDS: METHYL SALICYLATE/MENTHOL OINT 30 GM TUBE TP SCH (09:51)
[2017-09-20] MEDS: PANTOPRAZOLE 40 MG TABLET (FP) PO SCH (09:51)
[2017-09-20] MEDS: PRENATAL VITAMINS W/ FOLIC ACID TABLET (FP) PO SCH (09:51)
[2017-09-20] MEDS: THIAMINE HCL 100 MG TABLET (FP) PO SCH (21:51)
[2017-09-20] MEDS: DOCUSATE SODIUM 100 MG CAPSULE (FP) PO SCH (21:51)
[2017-09-20] MEDS: QUEtiapine FUMARATE 100 MG TABLET (FP) PO SCH (21:51)
[2017-09-21] MEDS: ALBUTEROL SO4 18 GM HFA INHALER IH PRN (06:23)
[2017-09-21] MEDS: METHADONE HCL 40 MG DISPERSABLE TABLET PO SCH (06:23)
[2017-09-21] MEDS: AMOX TR/POT CLAV 500MG/125MG TABLETS (FP) PO SCH ×2 (07:19→16:48)
[2017-09-21] MEDS: FERROUS SO4 325 MG TABLET (FP) PO SCH ×3 (07:19→16:48)
[2017-09-21] MEDS: PRENATAL VITAMINS W/ FOLIC ACID TABLET (FP) PO SCH (09:40)
[2017-09-21] MEDS: METHYL SALICYLATE/MENTHOL OINT 30 GM TUBE TP SCH (09:40)
[2017-09-21] MEDS: NICOTINE 21 MG/24 HOURS TOPICAL PATCH TD SCH (09:40)
[2017-09-21] MEDS: PANTOPRAZOLE 40 MG TABLET (FP) PO SCH (09:40)
[2017-09-21] MEDS: QUEtiapine FUMARATE 100 MG TABLET (FP) PO SCH (21:59)
[2017-09-21] MEDS: THIAMINE HCL 100 MG TABLET (FP) PO SCH (21:59)
[2017-09-21] MEDS: DOCUSATE SODIUM 100 MG CAPSULE (FP) PO SCH (21:59)
[2017-09-22] MEDS: METHADONE HCL 40 MG DISPERSABLE TABLET PO SCH (06:25)
[2017-09-22] MEDS: ALBUTEROL SO4 18 GM HFA INHALER IH PRN (06:27)
[2017-09-22] MEDS: AMOX TR/POT CLAV 500MG/125MG TABLETS (FP) PO SCH ×2 (07:08→16:58)
[2017-09-22] MEDS: FERROUS SO4 325 MG TABLET (FP) PO SCH ×3 (07:08→16:58)
[2017-09-22] MEDS: PANTOPRAZOLE 40 MG TABLET (FP) PO SCH (09:55)
[2017-09-22] MEDS: NICOTINE 21 MG/24 HOURS TOPICAL PATCH TD SCH (09:55)
[2017-09-22] MEDS: PRENATAL VITAMINS W/ FOLIC ACID TABLET (FP) PO SCH (09:56)
[2017-09-22] MEDS: METHYL SALICYLATE/MENTHOL OINT 30 GM TUBE TP SCH (09:56)
[2017-09-22] MEDS: THIAMINE HCL 100 MG TABLET (FP) PO SCH (21:48)
[2017-09-22] MEDS: QUEtiapine FUMARATE 100 MG TABLET (FP) PO SCH (21:48)
[2017-09-22] MEDS: DOCUSATE SODIUM 100 MG CAPSULE (FP) PO SCH (21:49)
[2017-09-23] MEDS: METHADONE HCL 40 MG DISPERSABLE TABLET PO SCH (06:22)
[2017-09-23] MEDS: ALBUTEROL SO4 18 GM HFA INHALER IH PRN ×2 (06:23→17:01)
[2017-09-23] MEDS: AMOX TR/POT CLAV 500MG/125MG TABLETS (FP) PO SCH ×2 (07:12→17:01)
[2017-09-23] MEDS: FERROUS SO4 325 MG TABLET (FP) PO SCH ×3 (07:12→17:01)
[2017-09-23] MEDS: PRENATAL VITAMINS W/ FOLIC ACID TABLET (FP) PO SCH (10:13)
[2017-09-23] MEDS: PANTOPRAZOLE 40 MG TABLET (FP) PO SCH (10:13)
[2017-09-23] MEDS: NICOTINE 21 MG/24 HOURS TOPICAL PATCH TD SCH (10:14)
[2017-09-23] MEDS: METHYL SALICYLATE/MENTHOL OINT 30 GM TUBE TP SCH (10:14)
[2017-09-23] MEDS: QUEtiapine FUMARATE 100 MG TABLET (FP) PO SCH (21:06)
[2017-09-23] MEDS: DOCUSATE SODIUM 100 MG CAPSULE (FP) PO SCH (21:06)
[2017-09-23] MEDS: THIAMINE HCL 100 MG TABLET (FP) PO SCH (21:06)
[2017-09-24] MEDS: METHADONE HCL 40 MG DISPERSABLE TABLET PO SCH (06:16)
[2017-09-24] MEDS: ALBUTEROL SO4 18 GM HFA INHALER IH PRN (06:17)
[2017-09-24] MEDS: FERROUS SO4 325 MG TABLET (FP) PO SCH ×3 (07:17→16:56)
[2017-09-24] MEDS: AMOX TR/POT CLAV 500MG/125MG TABLETS (FP) PO SCH ×2 (07:17→16:56)
[2017-09-24] MEDS: NICOTINE 21 MG/24 HOURS TOPICAL PATCH TD SCH (09:53)
[2017-09-24] MEDS: PANTOPRAZOLE 40 MG TABLET (FP) PO SCH (09:53)
[2017-09-24] MEDS: METHYL SALICYLATE/MENTHOL OINT 30 GM TUBE TP SCH (09:53)
[2017-09-24] MEDS: PRENATAL VITAMINS W/ FOLIC ACID TABLET (FP) PO SCH (09:53)
[2017-09-24] MEDS: THIAMINE HCL 100 MG TABLET (FP) PO SCH (21:53)
[2017-09-24] MEDS: DOCUSATE SODIUM 100 MG CAPSULE (FP) PO SCH (21:53)
[2017-09-24] MEDS: QUEtiapine FUMARATE 100 MG TABLET (FP) PO SCH (21:53)
[2017-09-25] MEDS: METHADONE HCL 40 MG DISPERSABLE TABLET PO SCH (06:12)
[2017-09-25] MEDS: ALBUTEROL SO4 18 GM HFA INHALER IH PRN (06:13)
[2017-09-25] MEDS: COLLOIDAL OATMEAL 1 BAR EACH TP PRN (06:15)
[2017-09-25] MEDS: AMOX TR/POT CLAV 500MG/125MG TABLETS (FP) PO SCH ×2 (07:04→16:34)
[2017-09-25] MEDS: FERROUS SO4 325 MG TABLET (FP) PO SCH ×3 (07:04→16:34)
[2017-09-25] MEDS: NICOTINE 21 MG/24 HOURS TOPICAL PATCH TD SCH (10:05)
[2017-09-25] MEDS: METHYL SALICYLATE/MENTHOL OINT 30 GM TUBE TP SCH (10:05)
[2017-09-25] MEDS: PANTOPRAZOLE 40 MG TABLET (FP) PO SCH (10:05)
[2017-09-25] MEDS: PRENATAL VITAMINS W/ FOLIC ACID TABLET (FP) PO SCH (10:05)
[2017-09-25 10:14] LABS: BASOPHIL 0.7 % (0-2.0); EOSINOPHIL 6.6 % (0-4.5); MCH 22.8 pg (25.7-33.7); MCHC 31.1 g/dl (32.0-35.9); MEAN CELL VOLUME 73.4 fl (80-96); MEAN PLT VOLUME 8.7 fl (7.5-11.1); NEUTROPHILS 67.8 % (42.8-82.8); PLATELET COUNT 350 K/MM3 (134-434); RDW 20.1 % (11.9-15.9); WHITE BLOOD COUNT 6.4 K/mm3 (4.0-10.0)
[2017-09-25 10:24] LABS: ALBUMIN 2.8 g/dl (3.4-5.0); ALK PHOS 103 U/L (45-117); ANION GAP 7 (8-16); BILIRUBIN,TOTAL 0.5 mg/dL (0.2-1.0); CALCIUM 8.1 mg/dL (8.5-10.1); CO2 28 mmol/L (21-32); CREATININE 0.7 mg/dL (0.7-1.3); GLUCOSE,RANDOM 82 mg/dL (74-106); SGOT/AST 13 U/L (15-37); SGPT/ALT 19 U/L (12-78)
[2017-09-25] MEDS: DOCUSATE SODIUM 100 MG CAPSULE (FP) PO SCH (21:45)
[2017-09-25] MEDS: QUEtiapine FUMARATE 100 MG TABLET (FP) PO SCH (21:45)
[2017-09-25] MEDS: THIAMINE HCL 100 MG TABLET (FP) PO SCH (21:45)
[2017-09-26] MEDS: METHADONE HCL 40 MG DISPERSABLE TABLET PO SCH (06:34)
[2017-09-26] MEDS: AMOX TR/POT CLAV 500MG/125MG TABLETS (FP) PO SCH ×2 (07:38→16:34)
[2017-09-26] MEDS: FERROUS SO4 325 MG TABLET (FP) PO SCH ×3 (07:38→16:34)
[2017-09-26] MEDS: PRENATAL VITAMINS W/ FOLIC ACID TABLET (FP) PO SCH (09:57)
[2017-09-26] MEDS: PANTOPRAZOLE 40 MG TABLET (FP) PO SCH (09:57)
[2017-09-26] MEDS: NICOTINE 21 MG/24 HOURS TOPICAL PATCH TD SCH (09:58)
[2017-09-26] MEDS: METHYL SALICYLATE/MENTHOL OINT 30 GM TUBE TP SCH (09:58)
[2017-09-26] MEDS: THIAMINE HCL 100 MG TABLET (FP) PO SCH (21:31)
[2017-09-26] MEDS: DOCUSATE SODIUM 100 MG CAPSULE (FP) PO SCH (21:31)
[2017-09-26] MEDS: QUEtiapine FUMARATE 100 MG TABLET (FP) PO SCH (21:31)
[2017-09-27] MEDS: METHADONE HCL 40 MG DISPERSABLE TABLET PO SCH (05:48)
[2017-09-27] MEDS: ALBUTEROL SO4 18 GM HFA INHALER IH PRN (05:50)
[2017-09-27] MEDS: AMOX TR/POT CLAV 500MG/125MG TABLETS (FP) PO SCH ×2 (07:13→17:45)
[2017-09-27] MEDS: FERROUS SO4 325 MG TABLET (FP) PO SCH ×3 (07:13→17:45)
[2017-09-27] MEDS: METHYL SALICYLATE/MENTHOL OINT 30 GM TUBE TP SCH (10:07)
[2017-09-27] MEDS: NICOTINE 21 MG/24 HOURS TOPICAL PATCH TD SCH (10:07)
[2017-09-27] MEDS: PANTOPRAZOLE 40 MG TABLET (FP) PO SCH (10:08)
[2017-09-27] MEDS: PRENATAL VITAMINS W/ FOLIC ACID TABLET (FP) PO SCH (10:08)
[2017-09-27] MEDS: QUEtiapine FUMARATE 100 MG TABLET (FP) PO SCH (21:08)
[2017-09-27] MEDS: THIAMINE HCL 100 MG TABLET (FP) PO SCH (21:08)
[2017-09-27] MEDS: DOCUSATE SODIUM 100 MG CAPSULE (FP) PO SCH (21:09)
[2017-09-28] MEDS: ALBUTEROL SO4 18 GM HFA INHALER IH PRN (06:10)
[2017-09-28] MEDS: METHADONE HCL 40 MG DISPERSABLE TABLET PO SCH (06:10)
[2017-09-28] MEDS: FERROUS SO4 325 MG TABLET (FP) PO SCH ×3 (07:06→16:58)
[2017-09-28] MEDS: AMOX TR/POT CLAV 500MG/125MG TABLETS (FP) PO SCH ×2 (07:06→16:58)
[2017-09-28] MEDS: PANTOPRAZOLE 40 MG TABLET (FP) PO SCH (10:00)
[2017-09-28] MEDS: PRENATAL VITAMINS W/ FOLIC ACID TABLET (FP) PO SCH (10:00)
[2017-09-28] MEDS: NICOTINE 21 MG/24 HOURS TOPICAL PATCH TD SCH (10:01)
[2017-09-28] MEDS: METHYL SALICYLATE/MENTHOL OINT 30 GM TUBE TP SCH (10:01)
[2017-09-28] MEDS: THIAMINE HCL 100 MG TABLET (FP) PO SCH (21:39)
[2017-09-28] MEDS: DOCUSATE SODIUM 100 MG CAPSULE (FP) PO SCH (21:39)
[2017-09-28] MEDS: QUEtiapine FUMARATE 100 MG TABLET (FP) PO SCH (21:40)
[2017-09-29] MEDS: METHADONE HCL 40 MG DISPERSABLE TABLET PO SCH (05:53)
[2017-09-29] MEDS: ALBUTEROL SO4 18 GM HFA INHALER IH PRN (05:54)
[2017-09-29] MEDS: FERROUS SO4 325 MG TABLET (FP) PO SCH ×3 (07:09→17:37)
[2017-09-29] MEDS: AMOX TR/POT CLAV 500MG/125MG TABLETS (FP) PO SCH ×2 (07:09→17:37)
[2017-09-29] MEDS: METHYL SALICYLATE/MENTHOL OINT 30 GM TUBE TP SCH (09:40)
[2017-09-29] MEDS: PRENATAL VITAMINS W/ FOLIC ACID TABLET (FP) PO SCH (09:40)
[2017-09-29] MEDS: NICOTINE 21 MG/24 HOURS TOPICAL PATCH TD SCH (09:40)
[2017-09-29] MEDS: PANTOPRAZOLE 40 MG TABLET (FP) PO SCH (09:41)
[2017-09-29] MEDS: DOCUSATE SODIUM 100 MG CAPSULE (FP) PO SCH (21:45)
[2017-09-29] MEDS: THIAMINE HCL 100 MG TABLET (FP) PO SCH (21:45)
[2017-09-29] MEDS: QUEtiapine FUMARATE 100 MG TABLET (FP) PO SCH (21:45)
[2017-09-30] MEDS: METHADONE HCL 40 MG DISPERSABLE TABLET PO SCH (06:00)
[2017-09-30] MEDS: ALBUTEROL SO4 18 GM HFA INHALER IH PRN (06:02)
[2017-09-30] MEDS: AMOX TR/POT CLAV 500MG/125MG TABLETS (FP) PO SCH ×2 (07:17→17:34)
[2017-09-30] MEDS: FERROUS SO4 325 MG TABLET (FP) PO SCH ×3 (07:17→17:34)
[2017-09-30] MEDS: METHYL SALICYLATE/MENTHOL OINT 30 GM TUBE TP SCH (09:57)
[2017-09-30] MEDS: NICOTINE 21 MG/24 HOURS TOPICAL PATCH TD SCH (09:58)
[2017-09-30] MEDS: PANTOPRAZOLE 40 MG TABLET (FP) PO SCH (09:59)
[2017-09-30] MEDS: PRENATAL VITAMINS W/ FOLIC ACID TABLET (FP) PO SCH (09:59)
[2017-09-30] MEDS: THIAMINE HCL 100 MG TABLET (FP) PO SCH (22:11)
[2017-09-30] MEDS: QUEtiapine FUMARATE 100 MG TABLET (FP) PO SCH (22:11)
[2017-09-30] MEDS: DOCUSATE SODIUM 100 MG CAPSULE (FP) PO SCH (22:11)
[2017-10-01] MEDS: METHADONE HCL 40 MG DISPERSABLE TABLET PO SCH (05:53)
[2017-10-01] MEDS: COLLOIDAL OATMEAL 1 BAR EACH TP PRN ×2 (06:14→21:09)
[2017-10-01] MEDS: AMOX TR/POT CLAV 500MG/125MG TABLETS (FP) PO SCH ×2 (07:11→18:09)
[2017-10-01] MEDS: FERROUS SO4 325 MG TABLET (FP) PO SCH ×3 (07:11→18:09)
[2017-10-01] MEDS: PRENATAL VITAMINS W/ FOLIC ACID TABLET (FP) PO SCH (09:48)
[2017-10-01] MEDS: NICOTINE 21 MG/24 HOURS TOPICAL PATCH TD SCH (09:48)
[2017-10-01] MEDS: PANTOPRAZOLE 40 MG TABLET (FP) PO SCH (09:48)
[2017-10-01] MEDS: METHYL SALICYLATE/MENTHOL OINT 30 GM TUBE TP SCH (09:48)
[2017-10-01] MEDS: QUEtiapine FUMARATE 100 MG TABLET (FP) PO SCH (21:09)
[2017-10-01] MEDS: THIAMINE HCL 100 MG TABLET (FP) PO SCH (21:10)
[2017-10-01] MEDS: DOCUSATE SODIUM 100 MG CAPSULE (FP) PO SCH (21:11)
[2017-10-02] MEDS: METHADONE HCL 40 MG DISPERSABLE TABLET PO SCH (06:10)
[2017-10-02] MEDS: FERROUS SO4 325 MG TABLET (FP) PO SCH ×3 (07:01→17:05)
[2017-10-02] MEDS: AMOX TR/POT CLAV 500MG/125MG TABLETS (FP) PO SCH ×2 (07:02→17:05)
[2017-10-02] MEDS: PRENATAL VITAMINS W/ FOLIC ACID TABLET (FP) PO SCH (10:08)
[2017-10-02] MEDS: METHYL SALICYLATE/MENTHOL OINT 30 GM TUBE TP SCH (10:08)
[2017-10-02] MEDS: NICOTINE 21 MG/24 HOURS TOPICAL PATCH TD SCH (10:08)
[2017-10-02] MEDS: PANTOPRAZOLE 40 MG TABLET (FP) PO SCH (10:08)
[2017-10-02] MEDS: ALBUTEROL SO4 18 GM HFA INHALER IH PRN (10:09)
[2017-10-02] MEDS: THIAMINE HCL 100 MG TABLET (FP) PO SCH (21:52)
[2017-10-02] MEDS: QUEtiapine FUMARATE 100 MG TABLET (FP) PO SCH (21:52)
[2017-10-02] MEDS: DOCUSATE SODIUM 100 MG CAPSULE (FP) PO SCH (21:52)
[2017-10-03] MEDS: ACETAMINOPHEN 325 MG TABLET (FP) PO PRN (05:59)
[2017-10-03] MEDS: METHADONE HCL 40 MG DISPERSABLE TABLET PO SCH (06:01)
[2017-10-03] MEDS: ALBUTEROL SO4 18 GM HFA INHALER IH PRN (06:02)
[2017-10-03] MEDS: AMOX TR/POT CLAV 500MG/125MG TABLETS (FP) PO SCH ×2 (07:10→17:34)
[2017-10-03] MEDS: FERROUS SO4 325 MG TABLET (FP) PO SCH ×3 (07:11→17:34)
--- NOTE | 2017-10-03 07:58 | PN ---
Psychiatric Progress Note Vital Signs: Vital Signs Period Temp Pulse Resp BP Sys/Goodson Pulse Ox Last 24 Hr 98.8 F-99.5 F 90 18-18 120/66 Date of Session: 10/03/17 Chief Complaint:: Discharge Note HPI: Patient addressing Alcohol and Cocaine Dependence comorbid with Opoid Dependence on Agonist Therapy, Nicotine Dependence, Schizoaffective Disorder and Substance-induced Sleep Disorder ROS: Anemia, Asthma, GERD, HIV, Hepatitis C were medically managed Current Medications: Active Medications Generic Name Dose Route Start Last Admin Trade Name Freq PRN Reason Stop Dose Admin Acetaminophen 650 mg 09/13/17 17:19 10/03/17 05:59 Tylenol - PO 650 mg Q4H PRN Administration PAIN Al Hydroxide/Mg Hydroxide 30 ml 09/13/17 17:19 Mylanta Oral Suspension - PO Q6H PRN DYSPEPSIA Albuterol Sulfate 2 puff 09/14/17 13:20 10/03/17 06:02 Ventolin Hfa Inhaler - IH 2 puff Q4H PRN Administration ASTHMA Amoxicillin/Clavulanate Potassium 1 tab 09/14/17 13:51 10/03/17 07:10 Augmentin - 500mg Tablet PO 1 tab BID@0800,1730 BLAIRE Administration Colloidal Oatmeal 1 applic 09/19/17 16:03 10/01/17 21:09 Aveeno Soap - TP 1 applic DAILY PRN Administration HYGEINE Docusate Sodium 300 mg 09/14/17 22:00 10/02/17 21:52 Colace - PO 300 mg HS BLAIRE Administration Eucalyptus/Menthol/Phenol/Sorbitol 1 each 09/13/17 17:19 Cepastat Lozenge - MM Q4H PRN SORE THROAT Ferrous Sulfate 325 mg 09/14/17 13:52 10/03/17 07:11 Feosol - PO 325 mg TIDCM BLAIRE Administration Guaifenesin 10 ml 09/13/17 17:19 Robitussin Dm - PO Q6H PRN COUGH Hydroxyzine Pamoate 50 mg 09/13/17 17:19 09/14/17 06:31 Vistaril - PO 50 mg Q4H PRN Administration AGITATION Loperamide HCl 4 mg 09/13/17 17:19 Imodium - PO Q6H PRN DIARRHEA Magnesium Citrate 300 ml 09/13/17 17:19 Citroma - PO Q48H PRN CONSTIPATION Magnesium Hydroxide 30 ml 09/13/17 17:19 Milk Of Magnesia - PO DAILY PRN CONSTIPATION Methadone HCl 80 mg 09/28/17 06:00 10/03/17 06:01 Dolophine - PO 10/05/17 05:59 80 mg DAILY@0600 BLAIRE Administration Methyl Salicylate 1 applic 09/14/17 13:50 10/02/17 10:08 Jefferosn-Arreola - TP 1 applic DAILY BLAIRE Administration Nicotine 21 mg 09/14/17 10:00 10/02/17 10:08 Nicoderm Patch - TD 21 mg DAILY BLAIRE Administration Nicotine Polacrilex 4 mg 09/13/17 17:19 Nicorette Gum - BC Q2H PRN NICOTINE REPLACEMENT RX Pantoprazole Sodium 40 mg 09/14/17 13:53 10/02/17 10:08 Protonix - PO 40 mg DAILY BLAIRE Administration Multivit/Folic Acid/Iron 1 tab 09/14/17 10:00 10/02/17 10:08 Vitamins (Sjr) - PO 1 tab DAILY BLAIRE Administration Pseudoephedrine/Triprolidine 1 combo 09/13/17 17:19 Actifed - PO TID PRN NASAL CONGESTION Quetiapine Fumarate 100 mg 09/14/17 22:00 10/02/17 21:52 Seroquel - PO 100 mg HS BLAIRE Administration Thiamine HCl 100 mg 09/13/17 22:00 10/02/17 21:52 Vitamin B1 - PO 100 mg HS BLAIRE Administration Current Side Effect: No Lab tests ordered: Yes Lab tests reviewed: Yes Provider note:: Patient alo complete this program on 10/04/17. He has met his treatment goals and alo continue to address his issues in outpatient treatment at [facility]. Told auto service writer that from his participation in this program, he has learned the importance of making meetings and having a sponsor. He responded well to Seroquel 100 mg po HS. Script for 30 days supply of that medication alo electronically be transmitted to [facility] at [address] [place] [address]. He is stable for discharge on 10/04/17 Total face to face time:: 35 Mental Status Exam - Mental Status Exam Alert and Oriented to: Time, Place, Person Cognitive Function: Fair Patient Appearance: Well Groomed Mood: Hopeful, Euthymic Affect: Appropriate Patient Behavior: Cooperative Speech Pattern: Clear Voice Loudness: Normal Thought Process: Intact, Goal Oriented Thought Disorder: Not Present Hallucinations: Denies Suicidal Ideation: Denies Homicidal Ideation: Denies Insight/Judgement: Fair Sleep: Fair Appetite: Good Muscle strength/Tone: Normal Gait/Station: Other (Ambulates with a cane) Psychiatric Treatment Plan - Problem List (1) Alcohol dependence Current Visit: Yes (2) Cocaine dependence Current Visit: Yes (3) Schizoaffective disorder Current Visit: No (4) Opioid dependence on agonist therapy Current Visit: Yes (5) Nicotine dependence Current Visit: Yes (6) Schizoaffective disorder Current Visit: Yes (7) Substance-induced sleep disorder Current Visit: No (8) Anemia Current Visit: No Qualifiers: Anemia type: iron deficiency (9) Asthma Current Visit: No Qualifiers: Asthma severity: mild Asthma complication type: uncomplicated (10) GERD (gastroesophageal reflux disease) Current Visit: No Qualifiers: Esophagitis presence: without esophagitis Qualified Code(s): K21.9 - Gastro -esophageal reflux disease without esophagitis (11) HIV (human immunodeficiency virus infection) Current Visit: No Comment: 2011 (12) Hepatitis C Current Visit: No Qualifiers: Viral hepatitis chronicity: chronic Initial treatment plan: Patient will be discharged tomorrow and referred to [facility] for outpatient treatment
[2017-10-03] MEDS: METHYL SALICYLATE/MENTHOL OINT 30 GM TUBE TP SCH (10:01)
[2017-10-03] MEDS: PANTOPRAZOLE 40 MG TABLET (FP) PO SCH (10:01)
[2017-10-03] MEDS: NICOTINE 21 MG/24 HOURS TOPICAL PATCH TD SCH (10:02)
[2017-10-03] MEDS: PRENATAL VITAMINS W/ FOLIC ACID TABLET (FP) PO SCH (10:02)
[2017-10-03] MEDS ORDERED: QUEtiapine FUMARATE 50 MG TABLET ONE (21:00)
[2017-10-03] MEDS: DOCUSATE SODIUM 100 MG CAPSULE (FP) PO SCH (21:27)
[2017-10-03] MEDS: THIAMINE HCL 100 MG TABLET (FP) PO SCH (21:28)
[2017-10-03] MEDS: QUEtiapine FUMARATE 100 MG TABLET (FP) PO SCH (21:29)
[2017-10-04] MEDS: METHADONE HCL 40 MG DISPERSABLE TABLET PO SCH (05:56)
[2017-10-04] MEDS: ALBUTEROL SO4 18 GM HFA INHALER IH PRN (05:56)
[2017-10-04] MEDS: ACETAMINOPHEN 325 MG TABLET (FP) PO PRN (05:57)
[2017-10-04] MEDS: AMOX TR/POT CLAV 500MG/125MG TABLETS (FP) PO SCH ×2 (07:10→17:04)
[2017-10-04] MEDS: FERROUS SO4 325 MG TABLET (FP) PO SCH ×3 (07:10→17:04)
[2017-10-04] MEDS: PRENATAL VITAMINS W/ FOLIC ACID TABLET (FP) PO SCH (10:16)
[2017-10-04] MEDS: PANTOPRAZOLE 40 MG TABLET (FP) PO SCH (10:16)
[2017-10-04] MEDS: METHYL SALICYLATE/MENTHOL OINT 30 GM TUBE TP SCH (10:16)
[2017-10-04] MEDS: NICOTINE 21 MG/24 HOURS TOPICAL PATCH TD SCH (10:16)
[2017-10-04] MEDS: THIAMINE HCL 100 MG TABLET (FP) PO SCH (21:55)
[2017-10-04] MEDS: QUEtiapine FUMARATE 100 MG TABLET (FP) PO SCH (21:56)
[2017-10-04] MEDS: DOCUSATE SODIUM 100 MG CAPSULE (FP) PO SCH (21:56)
[2017-10-05] MEDS ORDERED: METHADONE HCL 40 MG DISPERSABLE TABLET PO SCH (06:00)
[2017-10-05] MEDS: METHADONE HCL 40 MG DISPERSABLE TABLET PO SCH (06:12)
[2017-10-05] MEDS: ALBUTEROL SO4 18 GM HFA INHALER IH PRN (06:13)
[2017-10-05] MEDS: AMOX TR/POT CLAV 500MG/125MG TABLETS (FP) PO SCH ×2 (07:03→17:06)
[2017-10-05] MEDS: FERROUS SO4 325 MG TABLET (FP) PO SCH ×3 (07:04→17:06)
[2017-10-05] MEDS: PANTOPRAZOLE 40 MG TABLET (FP) PO SCH (10:16)
[2017-10-05] MEDS: NICOTINE 21 MG/24 HOURS TOPICAL PATCH TD SCH (10:16)
[2017-10-05] MEDS: PRENATAL VITAMINS W/ FOLIC ACID TABLET (FP) PO SCH (10:16)
[2017-10-05] MEDS: METHYL SALICYLATE/MENTHOL OINT 30 GM TUBE TP SCH (10:16)
[2017-10-05] MEDS: THIAMINE HCL 100 MG TABLET (FP) PO SCH (21:56)
[2017-10-05] MEDS: DOCUSATE SODIUM 100 MG CAPSULE (FP) PO SCH (21:56)
[2017-10-05] MEDS: COLLOIDAL OATMEAL 1 BAR EACH TP PRN (21:57)
[2017-10-05] MEDS: QUEtiapine FUMARATE 100 MG TABLET (FP) PO SCH (21:57)
[2017-10-06] MEDS: METHADONE HCL 40 MG DISPERSABLE TABLET PO SCH (06:24)
[2017-10-06] MEDS: FERROUS SO4 325 MG TABLET (FP) PO SCH ×3 (07:23→17:41)
[2017-10-06] MEDS: AMOX TR/POT CLAV 500MG/125MG TABLETS (FP) PO SCH ×2 (07:24→17:41)
[2017-10-06] MEDS: PRENATAL VITAMINS W/ FOLIC ACID TABLET (FP) PO SCH (10:12)
[2017-10-06] MEDS: NICOTINE 21 MG/24 HOURS TOPICAL PATCH TD SCH (10:12)
[2017-10-06] MEDS: PANTOPRAZOLE 40 MG TABLET (FP) PO SCH (10:12)
[2017-10-06] MEDS: ALBUTEROL SO4 18 GM HFA INHALER IH PRN (10:13)
[2017-10-06] MEDS: METHYL SALICYLATE/MENTHOL OINT 30 GM TUBE TP SCH (10:13)
--- NOTE | 2017-10-06 14:42 | PN ---
Psychiatric Progress Note Vital Signs: Vital Signs Period Temp Pulse Resp BP Sys/Goodson Pulse Ox Last 24 Hr 99 F 86 18-18 120/66 Date of Session: 10/06/17 Chief Complaint:: Discharge Note HPI: Patient addressing Alcohol and Cocaine Dependence comorbid with Opoid Dependence on Agonist Therapy, Nicotine Dependence, Schizoaffective Disorder and Substance-induced Sleep Disorder ROS: Anemia, Asthma, GERD, HIV, Hepatitis C were medically managed Current Medications: Active Medications Generic Name Dose Route Start Last Admin Trade Name Freq PRN Reason Stop Dose Admin Acetaminophen 650 mg 09/13/17 17:19 10/04/17 05:57 Tylenol - PO 650 mg Q4H PRN Administration PAIN Al Hydroxide/Mg Hydroxide 30 ml 09/13/17 17:19 Mylanta Oral Suspension - PO Q6H PRN DYSPEPSIA Albuterol Sulfate 2 puff 09/14/17 13:20 10/06/17 10:13 Ventolin Hfa Inhaler - IH 2 puff Q4H PRN Administration ASTHMA Amoxicillin/Clavulanate Potassium 1 tab 09/14/17 13:51 10/06/17 07:24 Augmentin - 500mg Tablet PO 1 tab BID@0800,1730 BLAIRE Administration Colloidal Oatmeal 1 applic 09/19/17 16:03 10/05/17 21:57 Aveeno Soap - TP 1 applic DAILY PRN Administration HYGEINE Docusate Sodium 300 mg 09/14/17 22:00 10/05/17 21:56 Colace - PO 300 mg HS BLAIRE Administration Eucalyptus/Menthol/Phenol/Sorbitol 1 each 09/13/17 17:19 Cepastat Lozenge - MM Q4H PRN SORE THROAT Ferrous Sulfate 325 mg 09/14/17 13:52 10/06/17 14:38 Feosol - PO Not Given TIDCM BLAIRE Guaifenesin 10 ml 09/13/17 17:19 Robitussin Dm - PO Q6H PRN COUGH Hydroxyzine Pamoate 50 mg 09/13/17 17:19 09/14/17 06:31 Vistaril - PO 50 mg Q4H PRN Administration AGITATION Loperamide HCl 4 mg 09/13/17 17:19 Imodium - PO Q6H PRN DIARRHEA Magnesium Citrate 300 ml 09/13/17 17:19 Citroma - PO Q48H PRN CONSTIPATION Magnesium Hydroxide 30 ml 09/13/17 17:19 Milk Of Magnesia - PO DAILY PRN CONSTIPATION Methadone HCl 80 mg 10/05/17 06:00 10/06/17 06:24 Dolophine - PO 80 mg DAILY@0600 BLAIRE Administration Methyl Salicylate 1 applic 09/14/17 13:50 10/06/17 10:13 [place]-Arreola - TP 1 applic DAILY BLAIRE Administration Nicotine 21 mg 09/14/17 10:00 10/06/17 10:12 Nicoderm Patch - TD 21 mg DAILY BLAIRE Administration Nicotine Polacrilex 4 mg 09/13/17 17:19 Nicorette Gum - BC Q2H PRN NICOTINE REPLACEMENT RX Pantoprazole Sodium 40 mg 09/14/17 13:53 10/06/17 10:12 Protonix - PO 40 mg DAILY BLAIRE Administration Multivit/Folic Acid/Iron 1 tab 09/14/17 10:00 10/06/17 10:12 Vitamins (Sjr) - PO 1 tab DAILY BLAIRE Administration Pseudoephedrine/Triprolidine 1 combo 09/13/17 17:19 Actifed - PO TID PRN NASAL CONGESTION Quetiapine Fumarate 100 mg 09/14/17 22:00 10/05/17 21:57 Seroquel - PO 100 mg HS BLAIRE Administration Thiamine HCl 100 mg 09/13/17 22:00 10/05/17 21:56 Vitamin B1 - PO 100 mg HS BLAIRE Administration Current Side Effect: No Lab tests ordered: Yes Lab tests reviewed: Yes Provider note:: Patient will complete this program on 10/07/17. He has met his treatment goals and alo continue to address his issues in outpatient treatment at [facility]. Told manual writer that from his participation in this program, he has learned the importance of making meetings and having a sponsor. He responded well to Seroquel 100 mg po HS. Script for 30 days supply of that medication alo electronically be transmitted to [facility] at [facility] [address] [place] [id number]. He is stable for discharge today Total face to face time:: 35 Mental Status Exam - Mental Status Exam Alert and Oriented to: Time, Place, Person Cognitive Function: Fair Patient Appearance: Well Groomed Mood: Hopeful, Euthymic Affect: Appropriate Patient Behavior: Cooperative Speech Pattern: Clear Voice Loudness: Normal Thought Process: Intact, Goal Oriented Thought Disorder: Not Present Hallucinations: Denies Suicidal Ideation: Denies Homicidal Ideation: Denies Insight/Judgement: Fair Sleep: Fair Appetite: Good Muscle strength/Tone: Normal Gait/Station: Other (Ambulates with a cane) Psychiatric Treatment Plan - Problem List (1) Alcohol dependence Current Visit: Yes (2) Cocaine dependence Current Visit: Yes (3) Schizoaffective disorder Current Visit: No (4) Opioid dependence on agonist therapy Current Visit: Yes (5) Nicotine dependence Current Visit: Yes (6) Schizoaffective disorder Current Visit: Yes (7) Substance-induced sleep disorder Current Visit: No (8) Anemia Current Visit: No Qualifiers: Anemia type: iron deficiency (9) Asthma Current Visit: No Qualifiers: Asthma severity: mild Asthma complication type: uncomplicated (10) GERD (gastroesophageal reflux disease) Current Visit: No Qualifiers: Esophagitis presence: without esophagitis Qualified Code(s): K21.9 - Gastro -esophageal reflux disease without esophagitis (11) HIV (human immunodeficiency virus infection) Current Visit: No Comment: 2011 (12) Hepatitis C Current Visit: No Qualifiers: Viral hepatitis chronicity: chronic Initial treatment plan: Patient will be discharged tomorrow and referred to [facility] for outpatient treatment
[2017-10-06] MEDS: DOCUSATE SODIUM 100 MG CAPSULE (FP) PO SCH (21:39)
[2017-10-06] MEDS: THIAMINE HCL 100 MG TABLET (FP) PO SCH (21:39)
[2017-10-06] MEDS: QUEtiapine FUMARATE 100 MG TABLET (FP) PO SCH (21:39)
[2017-10-07] MEDS: METHADONE HCL 40 MG DISPERSABLE TABLET PO SCH (05:38)
[2017-10-07] MEDS: ALBUTEROL SO4 18 GM HFA INHALER IH PRN (05:39)
[2017-10-07 07:05] VITALS: BP 110/68; PULSE 81; TEMP 98.8
[2017-10-07] MEDS: AMOX TR/POT CLAV 500MG/125MG TABLETS (FP) PO SCH (07:06)
[2017-10-07] MEDS: FERROUS SO4 325 MG TABLET (FP) PO SCH (07:06)
[2017-10-07] MEDS: PRENATAL VITAMINS W/ FOLIC ACID TABLET (FP) PO SCH (09:38)
[2017-10-07] MEDS: PANTOPRAZOLE 40 MG TABLET (FP) PO SCH (09:38)
[2017-10-07] MEDS: NICOTINE 21 MG/24 HOURS TOPICAL PATCH TD SCH (09:39)
[2017-10-07] MEDS: METHYL SALICYLATE/MENTHOL OINT 30 GM TUBE TP SCH (09:39)
== END 2017-10-07 09:45 | disposition home or self-care (01) | DRG 895 ==
LOC: YASAS 10:35 → Y3W 17:15
PROVIDERS: ADMIT Psychiatry & Neurology Psychiatry; ATTEND Psychiatry & Neurology Psychiatry
PROC: HZ42ZZZ Group Counseling for Substance Abuse Treatment, Cognitive-Behavioral (ICD-10-PCS; principal; 2017-09-13)
DX: F11.20 Opioid dependence, uncomplicated (principal); F14.20 Cocaine dependence, uncomplicated; F19.282 Other psychoactive substance dependence with psychoactive substance-induced sleep disorder; F10.20 Alcohol dependence, uncomplicated; F17.210 Nicotine dependence, cigarettes, uncomplicated; F25.9 Schizoaffective disorder, unspecified; D50.9 Iron deficiency anemia, unspecified; J45.20 Mild intermittent asthma, uncomplicated; K21.9 Gastro-esophageal reflux disease without esophagitis; Z21 Asymptomatic human immunodeficiency virus [HIV] infection status; B18.2 Chronic viral hepatitis C
CPT/HCPCS: 36415; 71020-TC; 80053; 81003; 85025; 85027; 86593; 86780; 87389; 93005; 93010